=== PATIENT | male | born 1960 | race Caucasian/White ===

== ENCOUNTER → 2020-10-15 | Outpatient (CLI) | payer BC, OTHER | LOC: HEART 5 10:09 | DX: I47.1 Supraventricular tachycardia (principal) ==

== ENCOUNTER → 2021-08-04 | Outpatient (CLI) | payer BC | LOC: KOH-I 09:13 | DX: M54.50 Low back pain, unspecified (principal); M43.8X6 Other specified deforming dorsopathies, lumbar region; M48.07 Spinal stenosis, lumbosacral region; M47.817 Spondylosis without myelopathy or radiculopathy, lumbosacral region | CPT/HCPCS: 72100 ==